=== PATIENT | male | born 1980 | race Caucasian/White ===

== ENCOUNTER 2020-07-13 19:37 | Emergency (ER) | payer MEDICAID ==
[~2020-07-13] VITALS: Ht 195.6 cm; Wt 114.0 kg
[2020-07-13 21:01] VITALS: BP 152/102
--- NOTE | 2020-07-13 21:06 | NUR ---
vascular in room
== END 2020-07-13 21:56 | disposition home or self-care (01) ==
LOC: ER 19:41
DX: M79.651 Pain in right thigh (principal); R06.02 Shortness of breath
CPT/HCPCS: 93971; 99284

== ENCOUNTER 2020-12-01 00:41 | Emergency (ER) | payer MEDICAID ==
[~2020-12-01] VITALS: Ht 193 cm; Wt 127.9 kg
[2020-12-01 00:52] VITALS: BP 145/87
[2020-12-01] MEDS ORDERED: cephalexin 500mg capsule PO ONE (04:10)
[2020-12-01] MEDS ORDERED: CEPH-585 PO (04:21)
== END 2020-12-01 05:02 | disposition home or self-care (01) ==
LOC: ER 00:41
DX: L03.116 Cellulitis of left lower limb (principal); M79.672 Pain in left foot; S92.355K Nondisplaced fracture of fifth metatarsal bone, left foot, subsequent encounter for fracture with nonunion; F17.200 Nicotine dependence, unspecified, uncomplicated; Z79.2 Long term (current) use of antibiotics; W22.8XXD Striking against or struck by other objects, subsequent encounter
CPT/HCPCS: 73630; 99283

== ENCOUNTER 2021-02-10 22:03 | Emergency (ER) | payer SELFPAY ==
[~2021-02-10] VITALS: Ht 195.6 cm; Wt 113.6 kg
[~2021-02-10 22:03] MED LIST: CEPH-585 PO
[2021-02-10 22:22] VITALS: BP 165/106
[2021-02-10] MEDS ORDERED: ondansetron 4mg rapidly disintigrating tab PO ONE (23:30)
[2021-02-10] MEDS ORDERED: ketorolac tromethamine 15mg/ml inj. IM ONE (23:30)
[2021-02-10] MEDS ORDERED: ONDA4TAB6 PO (23:35)
[2021-02-10] MEDS ORDERED: METH-798 PO (23:35)
== END 2021-02-11 00:14 | disposition home or self-care (01) ==
LOC: ER 22:03
DX: M79.672 Pain in left foot (principal); R11.2 Nausea with vomiting, unspecified; M54.50 Low back pain, unspecified; R19.7 Diarrhea, unspecified; Z79.2 Long term (current) use of antibiotics; Z79.899 Other long term (current) drug therapy; V87.7XXA Person injured in collision between other specified motor vehicles (traffic), initial encounter; Y93.89 Activity, other specified; Y92.89 Other specified places as the place of occurrence of the external cause; Y99.8 Other external cause status
CPT/HCPCS: 73630; 96372; 99283; J1885; 99284

== ENCOUNTER 2022-06-23 17:23 | Emergency (ER) | payer MEDICAID ==
[~2022-06-23] VITALS: Ht 195.6 cm; Wt 140.9 kg
[~2022-06-23 17:23] MED LIST changes: -CEPH-585 PO; +METH-798 PO; +ONDA4TAB6 PO
[2022-06-23 18:04] LABS: BASOPHILS # (AUTO) 0.1 X10'3 (0-0.2); BASOPHILS % (AUTO) 1.3 % (0-1); EOSINOPHILS # (AUTO) 0.3 X10'3 (0-0.9); EOSINOPHILS % (AUTO) 2.9 % (0-6); HEMATOCRIT 45.4 % (42.0-52.0); HEMOGLOBIN 15.5 g/dl (14.0-17.9); LYMPHOCYTES # (AUTO) 3.5 X10'3 (1.1-4.8); LYMPHOCYTES % (AUTO) 31.3 % (21-51); MEAN CORPUSCULAR HEMOGLOBIN 29.7 PG (27.0-31.0); MEAN CORPUSCULAR HGB CONC 34.2 g/dL (33.0-36.5); MEAN CORPUSCULAR VOLUME 86.7 FL (78-98); MEAN PLATELET VOLUME 7.8 FL (7.4-10.4); MONOCYTES # (AUTO) 0.9 X10'3 (0-0.9); MONOCYTES % (AUTO) 8.1 % (2-12); NEUTROPHILS # (AUTO) 6.2 X10'3 (1.8-7.7); NEUTROPHILS % (AUTO) 56.4 % (42-75); PLATELET COUNT 321 X10'3 (140-440); RED BLOOD COUNT 5.23 X10'6 (4.70-6.10); RED CELL DISTRIBUTION WIDTH 14.5 % (11.5-14.5); WHITE BLOOD COUNT 11.1 X10'3 (4.5-11.0)
[2022-06-23 18:54] LABS: ALANINE AMINOTRANSFERASE 39 U/L (12-78); ALBUMIN 3.7 G/DL (3.4-5.0); ALBUMIN/GLOBULIN RATIO 0.8 (1.1-1.5); ALKALINE PHOSPHATASE 75 IU/L (46-116); ANION GAP 9 (8-16); ASPARTATE AMINO TRANSFERASE 22 U/L (10-37); BILIRUBIN,TOTAL 0.2 MG/DL (0.1-1.0); BLOOD UREA NITROGEN 14 MG/DL (7-18); BUN/CREATININE RATIO 12.2 (5.4-32.0); CALCIUM 9.2 MG/DL (8.5-10.1); CHLORIDE 105 MMOL/L (99-107); CREATININE 1.15 MG/DL (0.60-1.10); GLUCOSE 95 MG/DL (70-104); POTASSIUM 4.2 MMOL/L (3.5-5.1); SODIUM 142 MMOL/L (135-145); TOTAL CARBON DIOXIDE 28.5 MMOL/L (24-32); TOTAL PROTEIN 8.1 G/DL (6.4-8.2); eGFR 70 ML/MIN
[2022-06-23] MEDS ORDERED: CefTRIAXone/D5W-Rocephin 1gm 50 ML IV ONE (18:55)
[2022-06-23] MEDS ORDERED: normal saline 1000ml 1,000 ML IV ONE (18:55)
[2022-06-23 19:01] LABS: MAGNESIUM 2.3 MG/DL (1.5-2.4)
[2022-06-23] MEDS ORDERED: furosemide 20MG tablet PO ONE (19:40)
[2022-06-23] MEDS ORDERED: cephalexin 250mg capsule PO ONE (19:40)
--- NOTE | 2022-06-23 19:44 | NUR ---
pt doesn't want an IV. [employer] made aware, changed up the POC.
[2022-06-23 20:00] VITALS: BP 148/113
[2022-06-23] MEDS ORDERED: CEPH-585 PO (20:03)
[2022-06-23] MEDS ORDERED: FURO-150 PO (20:03)
[2022-06-23] MEDS ORDERED: POTA-192 PO (20:03)
== END 2022-06-23 20:17 | disposition home or self-care (01) ==
LOC: ER 17:24
DX: L03.115 Cellulitis of right lower limb (principal); L03.116 Cellulitis of left lower limb; R22.43 Localized swelling, mass and lump, lower limb, bilateral; F17.200 Nicotine dependence, unspecified, uncomplicated
CPT/HCPCS: 36415; 71045; 80053; 83735; 83880; 84484; 85025; 93005; 99285